=== PATIENT | female | born 1970 | race Two or more races ===

== ENCOUNTER 2017-07-08 13:39 | Emergency (ER) | payer MEDICAID ==
[2017-07-08 14:42] LABS: Basophils # (auto) 0 uL; Basophils % (auto) 0.3 % (0.0-2.0); CONDITION Y; DEFINITIVE SEE PRINTOUT; Eosinophils # (auto) 0.1 uL; Eosinophils % (auto) 1.3 % (0.0-7.0); Hemoglobin 8.1 g/dL (12.2-16.2); Lymphocytes # (auto) 2.8 uL; Lymphocytes % (auto) 28.5 % (10.0-50.0); Mean Corpuscular Hemoglobin 20.9 pg (28.0-32.0); Mean Corpuscular Hgb Conc. 31.3 g/dL (32.0-36.0); Mean Corpuscular Volume 66.8 fL (80.0-100.0); Mean Platelet Volume 7.8 fL (7.4-10.4); Monocytes # (auto) 0.7 uL; Monocytes % (auto) 7.4 % (0.0-12.0); Neutrophils # (auto) 6.1 uL; Neutrophils % (auto) 62.5 % (37.0-80.0); Platelet Count (auto) 460 10^3/uL (140-450); White Blood Cell 9.8 10^3/uL (4.4-10.8)
[2017-07-08 14:44] LABS: Red Cell Distribution Width 20.9 % (11.6-16.0)
[2017-07-08 14:50] LABS: Albumin 3.5 g/dL (3.4-5.0); BUN/Creatinine Ratio 15.3; Calcium 8.7 mg/dL (8.5-10.1); Potassium 3.7 mmol/L (3.5-5.1)
[2017-07-08 14:53] LABS: Bilirubin, Total 0.3 mg/dL (0.2-1.0)
[2017-07-08 15:33] LABS: Urine Bilirubin Negative (Negative); Urine Blood Negative /uL (Negative); Urine Color Yellow (Yellow); Urine Glucose 4+ mg/dL (Normal); Urine Ketone Negative (Negative); Urine Mucus FEW (None Seen); Urine Nitrite Negative (Negative); Urine RBC 46 /hpf (0 - 4); Urine Squamous Epithelial Cell FEW /hpf (<5); Urine Urobilinogen Normal (Negative); Urine pH 5.5 (5.0-8.0)
[2017-07-08 15:52] LABS: Ovalocytes FEW; Platelet Estimate Increased; Tear Drop Cells FEW
[2017-07-08 15:53] LABS: Anisocytosis Moderate; Hypochromia Marked; Microcytosis Marked; Stomatocytes Few
[2017-07-08 15:54] LABS: Polychromasia Slight
[2017-07-08] MEDS ORDERED: KETOROLAC TROMETH 30 MG/ML 1ML VIAL IV ONE (16:15)
[2017-07-08] MEDS ORDERED: METOCLOPRAMIDE HCL 5MG/ml INJ 2ml VIAL IV ONE (16:15)
[2017-07-08 17:32] VITALS: BP 100/69
[2017-07-08] MEDS ORDERED: SODIUM CHLORIDE 0.9% 500 ML IV ONE (18:00)
== END 2017-07-08 17:28 | disposition home or self-care (01) ==
LOC: ER 13:43
DX: R10.11 Right upper quadrant pain (principal); E11.8 Type 2 diabetes mellitus with unspecified complications; E11.9 Type 2 diabetes mellitus without complications
CPT/HCPCS: 36415; 74176; 76705; 80053; 81001; 81025; 82150; 83690; 85025; 96374; 96375; 99285; J1885; J2765; J7030